=== PATIENT | male | born 1940 | race Caucasian/White ===

== ENCOUNTER 2020-12-16 11:04 | Emergency (ER) | payer MEDICARE ==
[2020-12-16 12:58] LABS: BILIRUBIN NEGATIVE (NEGATIVE); BLOOD TRACE-LYSED Ery/uL (NEGATIVE); CLARITY CLEAR (CLEAR); COLOR YELLOW (YELLOW); GLUCOSE (U) NORMAL (NORMAL); LEUKOCYTES NEGATIVE Leu/uL (NEGATIVE); NITRITE NEGATIVE (NEGATIVE); PROTEIN NEGATIVE (NEGATIVE); SPECIFIC GRAVITY 1.015 (1.001-1.030); UROBILINOGEN 0.2 mg/dL (0.2-1.0)
[2020-12-16 13:07] LABS: BACTERIA TRACE; URINARY WBC RARE
[2020-12-16] MEDS ORDERED: FLOMAX0.4 MG PO (13:23)
== END 2020-12-16 13:48 | disposition home or self-care (01) ==
LOC: FER 11:04
PROVIDERS: Nurse Practitioner Family
DX: R33.9 Retention of urine, unspecified (principal); I10 Essential (primary) hypertension; I25.2 Old myocardial infarction; Z79.82 Long term (current) use of aspirin; Z79.899 Other long term (current) drug therapy
CPT/HCPCS: 81001